=== PATIENT | male | born 1995 | race Caucasian/White ===

== ENCOUNTER 2018-05-09 12:03 | Emergency (ER) | payer OTHER ==
[2018-05-09 12:21] VITALS: BP 110/54
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
== END 2018-05-09 13:01 | disposition home or self-care (01) ==
LOC: ER 12:03
DX: H93.12 Tinnitus, left ear (principal); H92.02 Otalgia, left ear; M54.2 Cervicalgia; V43.52XA Car driver injured in collision with other type car in traffic accident, initial encounter
CPT/HCPCS: 99282

== ENCOUNTER 2018-12-05 10:09 | Emergency (ER) | payer OTHER ==
[2018-12-05 10:32] VITALS: BP 137/86
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
== END 2018-12-05 11:25 | disposition home or self-care (01) ==
LOC: ER 10:09
DX: H90.5 Unspecified sensorineural hearing loss (principal); H93.12 Tinnitus, left ear
CPT/HCPCS: 99283